=== PATIENT | female | born 1965 | race Caucasian/White ===

== ENCOUNTER 2017-09-30 07:30 | Inpatient (IN) | payer MEDICAID, OTHER ==
[~2017-09-30] VITALS: Ht 162.6 cm; Wt 128.0 kg
[~2017-09-30 07:30] MED LIST: ALBU8HFA IH; CeFAZolin 2 GM/DEXTROSE 50 ML IV ONE; FAMO20 PO; GING550C5 PO; GLIP10 PO; IBUP-2071 PO; INSU100I26 SQ; LEVE500T53 PO; LINA5TAB PO; MULT-1214 PO; OxyCODONE HCL 10 MG ER TABLET PO PRN; PANT40TA25 PO; SODIUM CHLORIDE 0.9% 1,000 ML IV SCH; TOPI100T37 PO; TOPI25 PO
[2017-09-30] MEDS ORDERED: RINGERS SOLUTION,LACTATED 1,000 ML IV ONE ×3 (11:16→15:32)
[2017-09-30] MEDS ORDERED: CeFAZolin 2 GM/DEXTROSE 50 ML IV ONE (11:17)
[2017-09-30] MEDS ORDERED: LIDOCAINE HCL/PF 2% 5 ML VIAL INJ ONE (12:00)
[2017-09-30] MEDS ORDERED: GLYCOPYRROLATE 0.2 MG/ML VIAL IM ONE (12:00)
[2017-09-30] MEDS ORDERED: METOCLOPRAMIDE HCL 5 MG/ML 2 ML VIAL IVP ONE (12:00)
[2017-09-30] MEDS ORDERED: DEXAMETHASONE SOD PHOS 4 MG/ML VIAL IVP ONE (12:00)
[2017-09-30 12:03] LABS: GLUCOMETER DEV NAME(LOC) SDS 5; GLUCOSE,POINT OF CARE 129 MG/DL (70-110)
[2017-09-30] MEDS ORDERED: TRANEXAMIC ACID 1,000 MG in DEXTROSE 5%-WATER 50 ML IV ONE ×2 (14:30→16:15)
[2017-09-30] MEDS ORDERED: BUPIVACAINE LIPOSOME/PF 1.3%-13.3MG/ML SUSPENSION 20 ML VIAL INJ ONE (14:30)
[2017-09-30] MEDS ORDERED: SODIUM CHLORIDE 0.9% 50 ML ONE (14:45)
[2017-09-30] MEDS ORDERED: HYDROmorphone 2 MG/ML SYRINGE IVP PRN ×2 (16:15)
[2017-09-30] MEDS ORDERED: MEPERIDINE-PF 25 MG/ML SYRINGE IVP PRN (16:15)
[2017-09-30] MEDS ORDERED: DIAZEPAM 5 MG TABLET PO PRN (16:15)
[2017-09-30] MEDS ORDERED: FentaNYL CITRATE-PF 100 MCG/2 ML VIAL IVP PRN (16:15)
[2017-09-30] MEDS: ACETAMINOPHEN 1000 MG/ISO-OSM 100 ML IV SCH (17:00)
[2017-09-30] MEDS ORDERED: ONDANSETRON HCL 4 MG/2 ML VIAL IVP PRN (17:45)
[2017-09-30] MEDS ORDERED: ZOLPIDEM TARTRATE 10 MG TABLET PO PRN (17:45)
[2017-09-30] MEDS ORDERED: DiphenhydrAMINE HCL 50 MG/ML VIAL IVP PRN (17:45)
[2017-09-30] MEDS ORDERED: BISACODYL 10 MG RECTAL RECTAL SUPPOSITORY PR PRN (17:45)
[2017-09-30] MEDS ORDERED: BENZOCAINE/MENTHOL LOZENGE [8 LOZENGES/PACKET] PO PRN (17:45)
[2017-09-30] MEDS ORDERED: MAG HYDROX/AL HYDROX/SIMETH 30 ML SUSP UDCUP PO PRN (17:45)
[2017-09-30 18:49] VITALS: BP 103/60
[2017-09-30] MEDS: FAMOTIDINE 20 MG TABLET PO SCH (20:37)
[2017-09-30] MEDS: DOCUSATE SODIUM 100 MG CAPSULE PO SCH (20:37)
[2017-09-30] MEDS: OXYGEN THERAPY IH SCH (20:39)
[2017-09-30] MEDS: HYDROmorphone 2 MG/ML SYRINGE IVP PRN (21:11)
[2017-09-30] MEDS: CeFAZolin 1 GM/DEXTROSE 50 ML IV SCH (21:11)
[2017-09-30] MEDS: RIVAROXABAN 10 MG TABLET PO SCH (22:00)
[2017-09-30 23:22] LABS: GLUCOMETER DEV NAME(LOC) PV 4E; GLUCOSE,POINT OF CARE 232 MG/DL (70-110)
[2017-09-30 23:43] VITALS: BP 102/55
[2017-10-01] MEDS ORDERED: DIAZEPAM 5 MG TABLET PO PRN (00:15)
[2017-10-01] MEDS ORDERED: SUCCINYLCHOLINE CHLORIDE 20 MG/ML 10 ML VIAL IVP ONE (00:20)
[2017-10-01] MEDS ORDERED: ROCURONIUM BROMIDE 10 MG/ML 5 ML VIAL IVP ONE ×2 (00:20→12:00)
[2017-10-01] MEDS ORDERED: ONDANSETRON HCL 4 MG/2 ML VIAL IVP ONE ×2 (00:20→12:00)
[2017-10-01] MEDS ORDERED: PROPOFOL 1% 20 ML VIAL IVP ONE ×2 (00:20→12:00)
[2017-10-01] MEDS ORDERED: 0.9% SODIUM CHLORIDE 10 ML VIAL IVP ONE (00:20)
[2017-10-01] MEDS ORDERED: NEOSTIGMINE METHYLSULFATE 1 MG/ML 10 ML VIAL IVP ONE ×2 (00:20→12:00)
[2017-10-01] MEDS ORDERED: FentaNYL CITRATE-PF 100 MCG/2 ML VIAL IVP ONE ×2 (00:44→12:00)
[2017-10-01] MEDS: ACETAMINOPHEN 1000 MG/ISO-OSM 100 ML IV SCH ×3 (00:45→17:41)
[2017-10-01] MEDS: SODIUM CHLORIDE 0.9% 1,000 ML IV SCH ×2 (00:45→20:18)
[2017-10-01] MEDS ORDERED: DEXTROSE 50%-WATER 25 GM/50 ML SYRINGE IVP PRN ×2 (01:00→06:00)
[2017-10-01 03:58] VITALS: BP 90/57
[2017-10-01 06:23] LABS: BASOPHILS % (AUTO) 0.1 % (0.0-2.0); EOSINOPHILS % (AUTO) 0.3 % (1.0-6.0); HEMATOCRIT 33.8 % (36-46); HEMOGLOBIN 11.1 g/dL (12.0-16.0); LYMPHOCYTES # (AUTO) 1.7 K/uL (1.0-4.8); LYMPHOCYTES % (AUTO) 16.3 % (22.0-44.0); MEAN CORPUSCULAR HEMOGLOBIN 25.4 pg (26.0-34.0); MEAN CORPUSCULAR HGB CONC 32.8 G/dL (31.0-37.0); MEAN CORPUSCULAR VOLUME 77 fL (80-100); MONOCYTES # (AUTO) 0.6 K/uL (0.1-1.0); MONOCYTES % (AUTO) 5.7 % (2.0-9.0); NEUTROPHILS # (AUTO) 8.3 K/uL (1.8-7.7); NEUTROPHILS % (AUTO) 77.6 % (40.0-70.0); PLATELET COUNT (AUTO) 328 K/uL (150-450); RED BLOOD CELL COUNT(AUTO) 4.36 MIL/uL (4.00-5.20); RED CELL DISTRIBUTION WIDTH 15.4 % (11.5-14.5)
[2017-10-01] MEDS: GlipiZIDE 10 MG TABLET PO SCH (06:36)
[2017-10-01] MEDS: CeFAZolin 1 GM/DEXTROSE 50 ML IV SCH ×3 (06:36→20:26)
[2017-10-01] MEDS: PANTOPRAZOLE SODIUM 40 MG DR TABLET PO SCH (06:36)
[2017-10-01 06:45] LABS: ANION GAP 8 mmol/L (8-16); CALCIUM, TOTAL 8.5 mg/dL (8.8-10.5); CARBON DIOXIDE 24 mmol/L (22-29); CHLORIDE 106 mmol/L (98-107); CREATININE 0.82 mg/dL (0.60-1.30); GLOMERULAR FILTR. RATE CALC > 60 mL/min (>60); POTASSIUM 3.6 mmol/L (3.5-5.1); SODIUM SERUM 138 mmol/L (136-145); UREA NITROGEN, BLOOD 7 mg/dL (7-18)
[2017-10-01] MEDS: INSULIN ASPART 100 UNITS/ML SQ PRN ×3 (06:48→22:08)
[2017-10-01 07:13] LABS: GLUCOSE,RANDOM 151 mg/dL (70-110)
[2017-10-01] MEDS ORDERED: PNEUMOCOCCAL VACCINE POLYVALENT 0.5 ML VIAL [PPSV23] IM ONE (07:30)
[2017-10-01 08:12] VITALS: BP 127/64
[2017-10-01] MEDS ORDERED: SODIUM CL IRRIG SOLN BAG 3,000 ML IRRIG ONE (08:58)
[2017-10-01] MEDS ORDERED: BUPIVACAINE HCL/PF 0.5% 30 ML VIAL ONE (08:59)
[2017-10-01] MEDS ORDERED: HYDROmorphone 2 MG/ML SYRINGE IVP PRN ×2 (09:45)
[2017-10-01] MEDS ORDERED: FentaNYL CITRATE-PF 100 MCG/2 ML VIAL IVP PRN ×2 (09:45)
[2017-10-01] MEDS ORDERED: MEPERIDINE-PF 25 MG/ML SYRINGE IVP PRN ×2 (09:45)
[2017-10-01] MEDS ORDERED: ACETAMINOPHEN 1000 MG/ISO-OSM 100 ML IV ONE (10:53)
[2017-10-01] MEDS ORDERED: HYDROmorphone 2 MG/ML SYRINGE ONE (11:03)
[2017-10-01] MEDS ORDERED: GLYCOPYRROLATE 0.2 MG/ML VIAL IM ONE (12:00)
[2017-10-01] MEDS ORDERED: DEXAMETHASONE SOD PHOS 4 MG/ML VIAL IVP ONE (12:00)
[2017-10-01] MEDS ORDERED: KETOROLAC TROMETHAMINE 60 MG/2 ML VIAL IM ONE (12:00)
[2017-10-01] MEDS ORDERED: MIDAZOLAM HCL 2 MG/2 ML VIAL IVP ONE (12:00)
[2017-10-01] MEDS ORDERED: LIDOCAINE HCL/PF 2% 5 ML VIAL INJ ONE (12:00)
[2017-10-01] MEDS ORDERED: METOCLOPRAMIDE HCL 5 MG/ML 2 ML VIAL IVP ONE (12:00)
[2017-10-01] MEDS: DOCUSATE SODIUM 100 MG CAPSULE PO SCH ×2 (12:05→20:26)
[2017-10-01] MEDS: FERROUS SULFATE 325 MG EC TABLET PO SCH ×2 (12:05→18:03)
[2017-10-01] MEDS: FAMOTIDINE 20 MG TABLET PO SCH ×2 (12:06→20:25)
[2017-10-01] MEDS: LevETIRAcetam 500 MG TABLET PO SCH ×2 (12:06→20:25)
[2017-10-01] MEDS: LinaGLIPtin 5 MG TABLET PO SCH (12:06)
[2017-10-01] MEDS: TOPIRAMATE 25 MG TABLET PO SCH ×2 (12:11→17:41)
[2017-10-01 12:58] LABS: GLUCOMETER DEV NAME(LOC) PV 4E; GLUCOSE,POINT OF CARE 98 MG/DL (70-110)
[2017-10-01 12:58] LABS: GLUCOMETER DEV NAME(LOC) PV 4E; GLUCOSE,POINT OF CARE 156 MG/DL (70-110)
[2017-10-01 15:21] VITALS: BP 107/65
[2017-10-01] MEDS: HYDROmorphone 2 MG/ML SYRINGE IVP PRN ×2 (15:38→22:02)
[2017-10-01] MEDS ORDERED: OxyCODONE HCL/ACETAMINOPHEN 5-325 MG TABLET PO PRN (16:15)
[2017-10-01] MEDS ORDERED: INSULIN DETEMIR 100 UNITS/ML SQ SCH (17:30)
[2017-10-01] MEDS: RIVAROXABAN 10 MG TABLET PO SCH (18:03)
[2017-10-01 19:39] VITALS: BP 101/61
[2017-10-01 19:47] LABS: GLUCOMETER DEV NAME(LOC) PV 4E; GLUCOSE,POINT OF CARE 218 MG/DL (70-110)
[2017-10-01] MEDS ORDERED: OXYGEN THERAPY IH SCH ×2 (20:00)
[2017-10-01 20:37] LABS: GLUCOMETER DEV NAME(LOC) PV 4E; GLUCOSE,POINT OF CARE 207 MG/DL (70-110)
[2017-10-01] MEDS ORDERED: TOPIRAMATE 100 MG TABLET PO SCH (21:00)
[2017-10-02 00:12] VITALS: BP 117/68
[2017-10-02] MEDS: CeFAZolin 1 GM/DEXTROSE 50 ML IV SCH (02:45)
[2017-10-02] MEDS: HYDROmorphone 2 MG/ML SYRINGE IVP PRN ×3 (02:52→10:19)
[2017-10-02 03:18] VITALS: BP 115/70
[2017-10-02] MEDS: OXYGEN THERAPY IH SCH ×2 (04:22→04:23)
[2017-10-02] MEDS: PANTOPRAZOLE SODIUM 40 MG DR TABLET PO SCH (06:01)
[2017-10-02] MEDS: GlipiZIDE 10 MG TABLET PO SCH (06:01)
[2017-10-02] MEDS: INSULIN ASPART 100 UNITS/ML SQ PRN (06:02)
[2017-10-02 07:08] LABS: BASOPHILS % (AUTO) 0.2 % (0.0-2.0); EOSINOPHILS % (AUTO) 0.6 % (1.0-6.0); HEMATOCRIT 30.5 % (36-46); HEMOGLOBIN 10.1 g/dL (12.0-16.0); LYMPHOCYTES # (AUTO) 2.7 K/uL (1.0-4.8); LYMPHOCYTES % (AUTO) 28.8 % (22.0-44.0); MEAN CORPUSCULAR HEMOGLOBIN 25.6 pg (26.0-34.0); MEAN CORPUSCULAR HGB CONC 33.2 G/dL (31.0-37.0); MEAN CORPUSCULAR VOLUME 77 fL (80-100); MONOCYTES # (AUTO) 0.6 K/uL (0.1-1.0); MONOCYTES % (AUTO) 6.8 % (2.0-9.0); NEUTROPHILS # (AUTO) 5.9 K/uL (1.8-7.7); NEUTROPHILS % (AUTO) 63.6 % (40.0-70.0); PLATELET COUNT (AUTO) 293 K/uL (150-450); RED BLOOD CELL COUNT(AUTO) 3.96 MIL/uL (4.00-5.20); RED CELL DISTRIBUTION WIDTH 15.3 % (11.5-14.5)
[2017-10-02 07:32] LABS: GLUCOMETER DEV NAME(LOC) PV 4E; GLUCOSE,POINT OF CARE 154 MG/DL (70-110)
[2017-10-02 08:16] VITALS: BP 102/55
[2017-10-02] MEDS: LinaGLIPtin 5 MG TABLET PO SCH (08:30)
[2017-10-02] MEDS: FERROUS SULFATE 325 MG EC TABLET PO SCH (08:30)
[2017-10-02] MEDS: FAMOTIDINE 20 MG TABLET PO SCH (08:30)
[2017-10-02] MEDS: DOCUSATE SODIUM 100 MG CAPSULE PO SCH (08:30)
[2017-10-02] MEDS: LevETIRAcetam 500 MG TABLET PO SCH (08:30)
[2017-10-02] MEDS: TOPIRAMATE 25 MG TABLET PO SCH (08:30)
[2017-10-02 11:45] VITALS: BP 109/57
[2017-10-02 12:13] LABS: GLUCOMETER DEV NAME(LOC) PV 4E; GLUCOSE,POINT OF CARE 108 MG/DL (70-110)
[2017-10-02 13:00] VITALS: BP 135/65
[2017-10-02] MEDS ORDERED: OxyCODONE HCL/ACETAMINOPHEN 5-325 MG TABLET PO ONE (13:15)
== END 2017-10-02 14:00 | disposition home or self-care (01) | DRG 488 ==
LOC: 4E 11:16
PROVIDERS: ADMIT Orthopaedic Surgery; ATTEND Orthopaedic Surgery
PROC: 0SUC09C Supplement Right Knee Joint with Liner, Patellar Surface, Open Approach (ICD-10-PCS; principal; 2017-09-30 13:45)
PROC: 0SPC04Z Removal of Internal Fixation Device from Right Knee Joint, Open Approach (ICD-10-PCS; 2017-10-01)
DX: M17.12 Unilateral primary osteoarthritis, left knee (principal); Z68.42 Body mass index [BMI] 45.0-49.9, adult; R56.9 Unspecified convulsions; T81.500A Unspecified complication of foreign body accidentally left in body following surgical operation, initial encounter; Y65.8 Other specified misadventures during surgical and medical care; I10 Essential (primary) hypertension; Y92.238 Other place in hospital as the place of occurrence of the external cause; Z91.040 Latex allergy status; Z88.8 Allergy status to other drugs, medicaments and biological substances; E66.9 Obesity, unspecified
CPT/HCPCS: 82962; 88300; 97162; 97166; C9290; J0131; J0330; J0690; J1100; J1170; J1885; J2250; J2405; J2704; J2765; J3010; J3490; J7030; J7050; J7060; J7120